=== PATIENT | female | born 1965 ===

== ENCOUNTER → 2016-08-15 | Outpatient (REF) ==
[2016-08-15 22:25] LABS: THYROID STIMULATING HORMONE 1.27 uIU/mL (0.465-4.680)
== END ==
LOC: ZLAB.WCH 21:44
PROVIDERS: Family Medicine
DX: Z01.89 Encounter for other specified special examinations (principal)

== ENCOUNTER → 2016-09-10 | Outpatient (REF) ==
[2016-09-10 18:33] LABS: TOTAL IRON BINDING CAPACITY 378 ug/dL (265-497)
[2016-09-10 18:59] LABS: FERRITIN 16 ng/mL (11-264)
== END ==
LOC: ZLAB.WCH 18:05
PROVIDERS: Family Medicine
DX: Z01.89 Encounter for other specified special examinations (principal)